=== PATIENT | male | born 2000 | race Caucasian/White ===

== ENCOUNTER 2020-01-23 20:17 | Emergency (ER) | payer OTHER ==
[2020-01-23 20:22] VITALS: BP 114/68; PULSE 70; RESP 18; TEMP 98.9
--- NOTE | 2020-01-23 21:17 | XR ---
EXAMINATION TYPE: XR hand complete RT DATE OF EXAM: 01/23/2020 COMPARISON: NONE HISTORY: Fifth digit injury TECHNIQUE: 3 views FINDINGS: I see no fracture nor dislocation. Little finger appears intact. Joint spaces appear normal . IMPRESSION: Negative right hand exam.
--- NOTE | 2020-01-23 22:34 | ED ---
General Adult HPI - General Source: patient, RN notes reviewed, old records reviewed Mode of arrival: ambulatory Limitations: no limitations <Dinh Villaseñor - Last Filed: 01/25/20 19:11> <Jojo Huynh - Last Filed: 01/29/20 00:53> - General Chief complaint: Extremity Injury, Upper Stated complaint: IHS R Finger Injury Time Seen by Provider: 01/23/20 20:41 - History of Present Illness Initial comments: 20-year-old male patient presents to ED with chief complaint of right hand pain. Patient reports he was at work when a heavy box that he is picking up fell and his right pinky was pulled backwards. Denies any other injury. He complaint is right finger pain. Denies any other complaints. Systemic: Pt denies fatigue, fever/chills, rash. Pt denies weakness, night sweats, weight loss. Neuro: Pt denies headache, visual disturbances, syncope or pre-syncope. HEENT: Pt denies ocular discharge or irritation, otalgia, rhinorrhea, pharyngitis or notable lymphadenopathy. Cardiopulmonary: Pt denies chest pain, SOB, heart palpitations, dyspnea on exertion. Abdominal/GI: Pt denies abdominal pain, n/v/d. : Pt denies dysuria, burning w/ urination, frequency/urgency. Denies new onset urinary or bowel incontinence. Neuro: Pt denies new onset weakness, paresthesias. (Dinh Villaseñor) - Related Data Home Medications Medication Instructions Recorded Confirmed No Known Home Medications 01/23/20 01/23/20 Allergies Allergy/AdvReac Type Severity Reaction Status Date / Time nickel Allergy Rash/Hives Verified 01/23/20 21:12 Review of Systems ROS Other: All systems not noted in ROS Statement are negative. <Dinh Villaseñor - Last Filed: 01/25/20 19:11> ROS Other: All systems not noted in ROS Statement are negative. <Jojo Huynh - Last Filed: 01/29/20 00:53> ROS Statement: Those systems with pertinent positive or pertinent negative responses have been documented in the HPI. Past Medical History Past Medical History: No Reported History History of Any Multi-Drug Resistant Organisms: None Reported Past Surgical History: No Surgical Hx Reported Past Psychological History: Depression Smoking Status: Current every day smoker Past Alcohol Use History: Occasional Past Drug Use History: None Reported <Dinh Villaseñor - Last Filed: 01/25/20 19:11> General Exam Limitations: no limitations <Dinh Villaseñor - Last Filed: 01/25/20 19:11> - General Exam Comments Initial Comments: Constitutional: NAD, AOX3, Pt has pleasant affect. HEENT: NC/AT, trachea midline, neck supple. External ears appear normal, without discharge. Mucous membranes moist.EOM intact. There is no scleral icterus. No pallor noted. Cardiopulmonary: RRR, no murmurs, rubs or gallops, no JVD noted. Lungs CTAB in anterior and posterior gee. No peripheral edema. Neuro: CN II-XII grossly intact. No nuchal rigidity. No raccon eyes, no perdomo sign. MSK: Fifth MCP joint on right hand is mildly tender to palpation. Range of motion of fifth digit is slightly limited at MCP joint for flexion due to pain. Sensation is intact. Cap refill less than 2 seconds. Radial pulse +2 bilaterally. No other areas of tenderness and hand and wrist. No snuffbox ten derness. (Dinh Villaseñor) Course Vital Signs 01/23/20 20:18 Temperature 98.9 F Pulse Rate 70 Respiratory 18 Rate Blood Pressure 114/68 O2 Sat by Pulse 100 Oximetry Procedures - Orthopedic Splinting/Casting Injury #1 Side: right Upper Extremity Immobilizer: volar splint, ulnar gutter <Dinh Villaseñor - Last Filed: 01/25/20 19:11> Medical Decision Making <Dinh Villaseñor - Last Filed: 01/25/20 19:11> <Jojo Huynh - Last Filed: 01/29/20 00:53> - Medical Decision Making 20-year-old male patient with CVG complaint of injury to right finger while is pressed back by a heavy box falling. Patient will signs are stable, afebrile. Plain film is negative. Physical exam displayed some tenderness to the MCP joint and some decreased range of motion. Patient was placed in a volar/ ulnar gutter splint. Neurovascular intact before and after splint placement. We'll discharge the patient primary care and orthopedic follow-up. Case discussed with Dr. Huynh. (Dinh Villaseñor) I was available for consultation in the emergency department. The history and physical exam were done by the midlevel provider. I was consulted for this patients care. I reviewed the case with the midlevel provider and based on their presentation of the patient, I agree with the assessment, medical decision making and plan of care as documented. Chart was dictated using [employer] dictation software. Attempts were made to correct any dictation errors however some typographical errors may persist. Patient was seen during a national state of emergency due to the Covid-19 pandemic. (Jojo Huynh) Disposition Is patient prescribed a controlled substance at d/c from ED?: No <Dinh Villaseñor - Last Filed: 01/25/20 19:11> <Jojo Huynh - Last Filed: 01/29/20 00:53> Clinical Impression: Finger sprain Disposition: HOME SELF-CARE Condition: Stable Instructions (If sedation given, give patient instructions): Finger Sprain (ED) Additional Instructions: Follow-up with primary care provider tomorrow. Follow-up with orthopedic consult tomorrow. Continue to wear splint. Return to ER if condition worsens. Referrals: None,Stated [Primary Care Provider] - 1-2 days Salo Emerson, PAC [PHYSICIAN RN RECOVERY] - 1-2 days
== END 2020-01-23 23:00 | disposition home or self-care (01) ==
LOC: EC 20:17
DX: S63.616A Unspecified sprain of right little finger, initial encounter (principal); F17.200 Nicotine dependence, unspecified, uncomplicated; Z91.048 Other nonmedicinal substance allergy status; W20.8XXA Other cause of strike by thrown, projected or falling object, initial encounter; Y92.69 Other specified industrial and construction area as the place of occurrence of the external cause; Y99.0 Civilian activity done for income or pay
CPT/HCPCS: 29125; 99284